=== PATIENT | female | born 1995 | race Two or more races ===

== ENCOUNTER 2016-12-23 14:41 | Emergency (ER) | payer SELFPAY ==
[~2016-12-23] VITALS: Ht 162.6 cm; Wt 64.0 kg
[2016-12-23 16:23] VITALS: BP 109/69
== END 2016-12-23 21:54 | disposition left against medical advice (07) ==
LOC: ER 14:43
DX: R68.84 Jaw pain (principal); F12.10 Cannabis abuse, uncomplicated